=== PATIENT | male | born 1970 | race Caucasian/White ===

== ENCOUNTER 2018-06-29 10:33 | Day surgery (SDC) | payer OTHER ==
[~2018-06-29] VITALS: Ht 190.5 cm; Wt 127.2 kg
[2018-06-29] MEDS ORDERED: OLAN5TAB9 PO (11:21)
[2018-06-29] MEDS ORDERED: POTASSIUM PO (11:21)
[2018-06-29] MEDS ORDERED: HYDROCORTIZONE PO (11:21)
[2018-06-29] MEDS ORDERED: DESM0.2T5 PO (11:21)
[2018-06-29] MEDS ORDERED: ZOLP-413 PO (11:21)
[2018-06-29] MEDS ORDERED: SYNTHROID PO (11:21)
[2018-06-29] MEDS ORDERED: SODIUM CHLORIDE 0.9% 1,000 ML IV SCH (11:22)
[2018-06-29 11:23] VITALS: BP 129/90
[2018-06-29] MEDS ORDERED: PLEASE ENTER HEIGHT AND WEIGHT MC SCH (11:30)
[2018-06-29] MEDS ORDERED: LIDOCAINE-MPF 1%, 5ML ONE ×2 (12:45→12:46)
[2018-06-29] MEDS ORDERED: MIDAZOLAM 1 MG/ML, 5ML ONE (12:48)
[2018-06-29] MEDS ORDERED: FENTANYL PF 100 MCG/2ML ONE (12:48)
[2018-06-29] MEDS ORDERED: FLUMAZENIL 0.1 MG/1 ML, 5ML ONE (12:48)
[2018-06-29] MEDS ORDERED: NALOXONE 1 MG/ML, 2ML ONE (12:49)
== END 2018-06-29 15:01 | disposition home or self-care (01) ==
LOC: OUT 10:33
PROVIDERS: ATTEND Internal Medicine Cardiovascular Disease
DX: I82.409 Acute embolism and thrombosis of unspecified deep veins of unspecified lower extremity (principal); I26.99 Other pulmonary embolism without acute cor pulmonale; E11.9 Type 2 diabetes mellitus without complications; Z86.14 Personal history of Methicillin resistant Staphylococcus aureus infection; Z79.84 Long term (current) use of oral hypoglycemic drugs
CPT/HCPCS: 37193; 99156; 99157; C1751; C1769; C1773; J2250; J3010; J7030; J2310

== ENCOUNTER → 2018-08-07 | Outpatient (CLI) | payer OTHER ==
[~2018-08-07] MED LIST: DESM0.2T5 PO; HYDROCORTIZONE PO; OLAN5TAB9 PO; POTASSIUM PO; SYNTHROID PO; ZOLP-413 PO
== END | disposition home or self-care (01) ==
LOC: CFH 12:17
PROVIDERS: ATTEND Family Medicine
DX: K76.0 Fatty (change of) liver, not elsewhere classified (principal)
CPT/HCPCS: 74176

== ENCOUNTER → 2018-10-02 | Outpatient (CLI) | payer OTHER ==
[~2018-10-02] MED LIST changes: +GADOBUTROL 10 MMOL/10 ML VIAL ONE
== END | disposition home or self-care (01) ==
LOC: CFH 10:48
PROVIDERS: ATTEND Neurological Surgery
DX: R22.0 Localized swelling, mass and lump, head (principal); Z98.890 Other specified postprocedural states
CPT/HCPCS: 70553; A9585